=== PATIENT | female | born 1995 | race Caucasian/White ===

== ENCOUNTER → 2022-04-07 | Outpatient (CLI) | payer OTHER ==
--- NOTE | 2022-04-07 17:34 | US ---
EXAMINATION TYPE: Ultrasound OB <= 14 week fetus DATE OF EXAM: 04/07/2022 2:36 PM COMPARISON: NONE CLINICAL HISTORY: 26-year-old female Z36.89 Confirm dates. Early OB, A2. Date of LMP: 02/03/2022 . EXAM PERFORMED: OBTA FINDINGS: EXAM MEASUREMENTS: GESTATIONAL AGE / DATING Physician Established: Not yet established Dates by LMP: (9 weeks/0 days) EDC: 11/10/2022 Dates by First Scan: No previous this is first scan Dates by Current Scan for: (8 weeks/3 days) (+/- 5 days) EDC: 11/14/2022 MATERNAL ANATOMY Uterus: 11.2 x 3.9 x 5.1cm Right Ovary: 2.4 x 1.6 x 1.8cm Left Ovary: 2.8 x 3.3 x 2.5cm Post CDS / Adnexa: wnl Presence of free fluid: no Presence of corpus luteal cyst: left ovary = 2.4cm Presence of subchorionic bleed: no GESTATION / SURVEY CRL: 1.9cm ( 8 weeks/3 days) MSD: wnl Yolk Sac (normal less than 6mm): 0.3cm Heart Rate: 152 bpm Rhythm: Normal IUP: Viable IUP IMPRESSION: 1. Single live intrauterine with estimated gestational age of 9 weeks 0 days by LMP. Curren t ultrasound biometry is smaller but concordant at 8 weeks 3 days. 2. Complete survey recommended at 18-20 weeks.
== END | disposition home or self-care (01) ==
LOC: RADUSWWP 14:18
PROVIDERS: ATTEND Obstetrics & Gynecology
DX: Z36.89 Encounter for other specified antenatal screening (principal)
CPT/HCPCS: 76801

== ENCOUNTER → 2022-06-17 | Outpatient (CLI) | payer OTHER ==
--- NOTE | 2022-06-17 16:39 | US ---
EXAMINATION TYPE: US OB anatomy transabd DATE OF EXAM: 06/17/2022 COMPARISON: NONE GESTATIONAL AGE / DATING Physician Established: (19 weeks/1 days) EDC: 11/10/2022 Dates by LMP: approximately 02/07/2022 Dates by First Scan: No previous this is first Dates by Current Scan: (18 weeks/0 days) EDC: 11/18/2022 SURVEY IUP: Single PLACENTA: Posterior PREVIA: No Previa SUSAN: 10.0 cm CERVICAL LENGTH (transabdominal: norm > 3.0cm): 3.8 cm BIOMETRY PRESENTATION: Variable LIE: Transverse with head maternal L BPD: 3.76 cm 17 weeks / 3 days HC: 14.42 cm 17 weeks / 5 days AC: 14.35 cm 19 weeks / 5 days FL: 2.57 cm 17 weeks / 6 days ESTIMATED WEIGHT IN GRAMS: 250.2 grams ESTIMATED WEIGHT IN LBS/OZ: 0 lbs. 9 oz. WEIGHT PERCENTAGE BASED ON ESTABLISHED DATES: 19.8% HC/AC: 1.0 FL/AC: 17.9 HEART RATE: 143 bpm RHYTHM: Normal ANATOMY SEEN (within normal limits): * Lateral Vent (< 1 cm) 0.73 cm * Cisterna Magna (< 1.1 cm) 0.27 cm * Nuchal Fold (< 0.6 cm) 0.30 cm * Cerebellum (varies with age) 1.73 cm Choroid Plexus (bilateral) Midline Falx Cavus Septi Pellucidi Four Chamber Heart Outflow tracts: LVOT/RVOT Stomach Situs Nose / Lips Diaphragm Kidneys (bilateral) Bladder Cord Insert Three Vessel Cord Longitudinal Spine Transverse Spine Arms (bilateral) Legs (bilateral) IMPRESSION: 1. Single intrauterine gestation estimated at 18 weeks 0 days gestation based on current ultrasound m easurements. 2. Cardiac activity measures 143 bpm.
== END | disposition home or self-care (01) ==
LOC: RADUSWWP 10:28
PROVIDERS: ATTEND Obstetrics & Gynecology
DX: O36.62X0 Maternal care for excessive fetal growth, second trimester, not applicable or unspecified (principal); Z3A.18 18 weeks gestation of pregnancy
CPT/HCPCS: 76811

== ENCOUNTER → 2022-08-11 | Outpatient (CLI) | payer OTHER ==
[2022-08-11 17:46] LABS: HCT 33.6 % (37.2-46.3); HGB 10.4 g/dL (12.0-15.0); MCH 29.8 pg (27.0-32.0); MCV 96.3 fL (80.0-97.0); Mean Platelet Volume 11.2 fL (9.5-12.2); NRBC Per 100 WBC 0 /100 WBCS (0.0-0.0); Platelet Count 226 X 10*3/uL (140-440); RBC 3.49 X 10*6/uL (4.10-5.20); RDW 13.7 % (11.5-14.5); WBC 7.81 X 10*3/uL (4.50-10.00)
== END | disposition home or self-care (01) ==
LOC: LABWHC1 07:50
PROVIDERS: ATTEND Obstetrics & Gynecology
DX: N39.0 Urinary tract infection, site not specified (principal); D64.9 Anemia, unspecified; E03.9 Hypothyroidism, unspecified
CPT/HCPCS: 36415; 82950; 85027

== ENCOUNTER → 2022-10-07 | Outpatient (CLI) | payer OTHER ==
--- NOTE | 2022-10-07 12:04 | US ---
EXAMINATION TYPE: US OB >= 14 wk fetus DATE OF EXAM: 10/07/2022 COMPARISON: Prior ultrasounds April 07, 2022 and June 17, 2022 CLINICAL HISTORY: 36.63X0 MATERNAL CARE FOR EXCESS GROWTH, TH TECHNIQUE: GESTATIONAL AGE / DATING Physician Established: (35 weeks/3 days) EDC: 11-09-22 Dates by First Scan: (34 weeks/0 days) EDC: 11-18-22 Dates by Current Scan: (35 weeks/0 days) EDC: 11-11-22 SURVEY IUP: Single PLACENTA: Posterior/fundal PREVIA: No Previa SUSAN: 14.6 cm CERVICAL LENGTH (transabdominal: norm > 3.0cm): 3.4 cm BIOMETRY PRESENTATION: Vertex BPD: 8.7 cm 35 weeks / 0 days HC: 31.8 cm 35 weeks / 5 days AC: 31.1 cm 35 weeks / 0 days FL: 6.9 cm 35 weeks / 3 days ESTIMATED WEIGHT IN GRAMS: 2615 grams ESTIMATED WEIGHT IN LBS/OZ: 5 lbs. 12 oz. WEIGHT PERCENTAGE BASED ON ESTABLISHED DATES: 45% HC/AC: 1.0 FL/AC: 22.2 HEART RATE: 136 bpm Single live intrauterine gestation is redemonstrated. No cervical thinning is seen. No placenta previ a. Estimated amniotic fluid index remains within normal limits. biometry measurements are conco rdant and within normal limits. Satisfactory interval growth noted. IMPRESSION: As above.
== END | disposition home or self-care (01) ==
LOC: RADUSWWP 10:22
PROVIDERS: ATTEND Obstetrics & Gynecology
DX: O36.63X0 Maternal care for excessive fetal growth, third trimester, not applicable or unspecified (principal); Z3A.35 35 weeks gestation of pregnancy
CPT/HCPCS: 76805

== ENCOUNTER → 2022-11-16 | Outpatient (CLI) | payer OTHER | LOC: FBPOP 16:25 → UNDOADMIN 17:11 → 4FBP 17:11 | PROVIDERS: ATTEND Obstetrics & Gynecology | DX: Z53.9 Procedure and treatment not carried out, unspecified reason (principal) ==

== ENCOUNTER 2022-11-17 05:39 | Inpatient (IN) | payer OTHER ==
--- NOTE | 2022-11-16 19:12 | P.HPOB ---
History of Present Illness H&P Date: 11/16/22 Chief Complaint: Postdates induction This patient is a pleasant 27-year-old 4 para 1 female estimated date of confinement 11/10/2022 estimated gestational age 41 weeks who presents to labor and delivery for requested postdates induction of labor. Patient's has been uncomplicated. She initially was scheduled for Cervidil on the however was having contractions throughout the day and found to be 1-2 cm dilated. Patient was given the choice to stay her go home she elected to go home and return on the for induction. Patient has had normal ultrasounds and testing. Review of Systems Genitourinary: Reports Menstruation: Reports amenorrhea Past Medical History Past Medical History: No Reported History Additional Past Medical History / Comment(s): Patient had a previous 41 week vaginal delivery 8 lbs. 9 oz. baby uncomplicated. History of Any Multi-Drug Resistant Organisms: None Reported Past Surgical History: No Surgical Hx Reported Past Anesthesia/Blood Transfusion Reactions: No Reported Reaction Past Psychological History: No Psychological Hx Reported Smoking Status: Never smoker Past Alcohol Use History: None Reported Past Drug Use History: None Reported Medications and Allergies Home Medications Medication Instructions Recorded Confirmed Type Vit No.179/Iron/Folic 1 tab PO DAILY 11/16/22 11/16/22 History [ Tablet] Allergies Allergy/AdvReac Type Severity Reaction Status Date / Time No Known Allergies Allergy Verified 11/16/22 17:13 Exam - OBG Physical Exam Abdomen: bowel sounds normal, no diffuse tenderness, no bruit present, no guarding noted, no hepatomegaly, no splenomegaly, no mass Vulva: both: normal Vagina: normal moisture, no discharge Cervix: no lesion (Cervix is 1-2 cm thick but soft.), no discharge Uterus: enlarged (Fundal height is 40 cm) Results blood work shows she is A positive, rubella immune, RPR is nonreactive, HIV is nonreactive, hepatitis B was negative, group B strep was negative, Glucola was normal, most recent ultrasound showed a beta be 5 lbs. 12 oz. which is 45th percentile, this was on October 07 Assessment and Plan Assessment: This is a pleasant 27-year-old 4 para 1 female 41-0/7 weeks gestation who presents to labor and delivery for requested induction of labor. Plan is artificial rupture membranes and Pitocin augmentation per protocol. We anticipate vaginal delivery. (1) 41 weeks gestation of Status: Acute Code(s): O48.0 - POST-TERM ; Z3A.41 - 41 WEEKS GESTATION OF SNOMED Code(s): 22947760 (2) Elective induction of labor planned Status: Acute Code(s): [id number] - SNOMED Code(s): 452483470
[2022-11-17] MEDS ORDERED: OXYTOCIN 10 UNIT/ML 1 ML VIAL IM PRN (05:44)
[2022-11-17] MEDS ORDERED: METHYLERGONOVINE 0.2 MG/ML 1 ML AMP IM PRN (05:44)
[2022-11-17] MEDS ORDERED: TERBUTALINE 1 MG/ML VIAL SQ PRN (05:44)
[2022-11-17] MEDS ORDERED: OXYTOCIN 30 UNITS/500 ML NS 30 UNIT in SALINE 1 500ML.BAG IV SCH (05:44)
[2022-11-17] MEDS ORDERED: LIDOCAINE 0.5% (PF) 5 MG/ML (50 ML SDV) SQ PRN (05:44)
[2022-11-17] MEDS: LACTATED RINGERS 1,000 ML IV SCH ×4 (06:03→19:37)
[2022-11-17 06:18] LABS: Basophils % (A) 0 %; Eosinophils # (A) 0.1 k/uL (0-0.7); Eosinophils % (A) 1 %; HCT 35.7 % (34.0-46.0); HGB 12.2 gm/dL (11.4-16.0); Lymphocytes # (A) 2.6 k/uL (1.0-4.8); Lymphocytes % (A) 28 %; MCH 30.1 pg (25.0-35.0); MCHC 34.1 g/dL (31.0-37.0); MCV 88.5 fL (80.0-100.0); Mean Platelet Volume 9.6; Monocytes # (A) 0.3 k/uL (0-1.0); Monocytes % (A) 3 %; Neutrophils % (A) 65 %; Platelet Count 223 k/uL (150-450); RBC 4.04 m/uL (3.80-5.40); WBC 9.3 k/uL (3.8-10.6)
[2022-11-17] MEDS ORDERED: SODIUM CHLORIDE 0.9% 100 ML BAG ONE (19:00)
[2022-11-17] MEDS ORDERED: fentaNYL (PF) 50 MCG/ML 5 ML AMP ONE (19:00)
[2022-11-17] MEDS ORDERED: ROPIVACAINE 5 MG/ML 20 ML AMPULE ONE (19:00)
[2022-11-17] MEDS ORDERED: bisacodyL 10 MG SUPP RECTAL PRN (20:50)
[2022-11-17] MEDS ORDERED: ZOLPIDEM 5 MG TAB PO PRN (20:50)
[2022-11-17] MEDS ORDERED: SIMETHICONE 80 MG CHEWABLE PO PRN (20:50)
[2022-11-17] MEDS ORDERED: diphenhydrAMINE 25 MG CAP PO PRN (20:50)
[2022-11-17] MEDS ORDERED: BENZOCAINE/MENTHOL SPRAY 1 GM/SPRAY AEROSOL TOPICAL PRN (20:50)
[2022-11-17] MEDS ORDERED: HYDROCORTISONE 2.5% RECTAL CREAM 30 GM TUBE RECTAL PRN (20:50)
[2022-11-17] MEDS ORDERED: LANOLIN CREAM 5 GM TUBE TOPICAL PRN (20:50)
[2022-11-17] MEDS ORDERED: ACETAMINOPHEN TAB 325 MG TAB PO PRN (20:50)
[2022-11-17] MEDS ORDERED: diphenhydrAMINE 50 MG/ML 1 ML VIAL IVP PRN (20:50)
--- NOTE | 2022-11-17 20:55 | P.PROBDLV ---
Vaginal Delivery Note - . Vaginal Delivery Note: Normal vaginal delivery viable female Apgars 8 and 9 delivery time is 8 hrs. Please see dictated H&P for intimate details of this patient's admission. In brief summary this is a pleasant 27-year-old 4 para 1 female 41-0/7 weeks gestation who is admitted this morning for postdates induction of labor. On admission patient is 2 cm dilated has artificial rupture membranes for clear fluid. Patient's labor is induced with Pitocin per protocol. Patient is not initially requesting anything for pain control. Patient progresses slowly throughout the day and at approximately 1930 hrs. she is only 4 cm dilated and very uncomfortable does request an epidural for pain control. Patient gets relief from this and then approximately an hour later is complete. Patient pushes approximately 2 times pushes the head to the perineum. Posterior perineum is supported we have controlled delivery of the 's head over the intact perineum. Mouth and nares are bulb suctioned. 's head is straight occiput anterior presentation. There is a tight nuchal cord which is doubly clamped cut and then reduced. The anterior shoulder then spontaneously delivers followed by the rest of this infant's body. This is a vigorous viable female Apgars are 8 and 9 delivery time is 2038 hrs. Infant has spontaneous respirations and good cry and grossly appears normal. is laid on the mother's abdomen. The placenta is then spontaneously delivered intact. Estimated blood loss is 100 mL. There are no lacerations and no repairs required. Infant and mother stable delivery room.
[2022-11-17] MEDS: OXYTOCIN 30 UNITS/500 ML NS 30 UNIT in SALINE 1 500ML.BAG IV SCH ×2 (21:05→21:18)
[2022-11-17 21:44] VITALS: RESP 16
--- NOTE | 2022-11-18 07:01 | P.PNOBGVD ---
Subjective - Subjective Patient reports: Reports appetite normal, Reports voiding normally, Reports pain well controlled, Reports ambulating normally : doing well Objective - Latest Vital Signs Latest vital signs: Vital Signs Temp Pulse Resp BP Pulse Ox 11/18/22 04:00 98.6 F 84 16 96/59 11/18/22 00:00 76 16 130/62 11/17/22 23:25 70 16 132/63 11/17/22 22:59 81 16 116/58 11/17/22 22:29 98.5 F 75 16 124/64 11/17/22 22:00 66 16 108/56 11/17/22 21:44 71 16 105/55 99 11/17/22 21:29 79 16 131/58 99 11/17/22 21:14 67 16 103/55 98 11/17/22 21:00 98.7 F 76 16 111/59 98 Intake and Output 11/17/22 11/18/22 11/18/22 22:59 06:59 14:59 Intake Total 500 Output Total 300 250 Balance 200 -250 Intake: Intake, IV Titration 500 Amount Oxytocin 30 Units/500 ml 500 Ns 30 unit In Saline 1 500ml.bag @ Per Protocol IV .Q0M [facility] Rx#:[id number] Output: Urine 200 Estimated Blood Loss 100 Output, Quantitative 250 Blood Loss Other: # Voids 1 - Exam Lungs: bilateral: normal Chest: Normal S1, Normal S2 Extremities: Present: normal Abdomen: Present: normal appearance, soft Uterus: Present: normal, firm Assessment and Plan Assessment: Post day #1. Patient is resting without complaints wishes to go home later today. Vital signs are stable she is afebrile. Uterus is firm nontender she's having normal lochia. CBC is pending at time of this dictation. My impression is this is a normal course. Plan is to continue routine care, check a CBC, discharge home later tonight. (1) 41 weeks gestation of Current Visit: No Status: Acute Code(s): O48.0 - POST-TERM ; Z3A.41 - 41 WEEKS GESTATION OF SNOMED Code(s): 78955525 (2) Elective induction of labor planned Current Visit: No Status: Acute Code(s): [id number] - SNOMED Code(s): 740520168
--- NOTE | 2022-11-18 07:05 | P.DS ---
Providers Date of admission: 11/17/22 05:39 Expected date of discharge: 11/18/22 Attending physician: German Farias Primary care physician: Stated None - Discharge Diagnosis(es) (1) 41 weeks gestation of Current Visit: No Status: Acute (2) Elective induction of labor planned Current Visit: No Status: Acute Hospital Course: Please see dictated H&P for intimate details of this patient's admission. Brief summary this pleasant 27-year-old 4 para 1 female 41 weeks gestation admitted for postdates induction of labor. Patient is admitted and undergoes uncomplicated vaginal delivery viable female infant. Please see dictated delivery note. day #1 patient is without complaints and wishes to go home. Patient's felt to be stable for discharge home follow up with me in 6 weeks. Procedures: Induction of labor and normal vaginal delivery Patient Condition at Discharge: Good Plan - Discharge Summary New Discharge Prescriptions: New Ibuprofen [Motrin] 600 mg PO Q6HR PRN #30 tab PRN Reason: Mild Pain (Scale 1 To 3) No Action Vit No.179/Iron/Folic [ Tablet] 1 tab PO DAILY Discharge Medication List Vit No.179/Iron/Folic [ Tablet] 1 tab PO DAILY 11/16/22 [History] Ibuprofen [Motrin] 600 mg PO Q6HR PRN #30 tab 11/18/22 [Rx] Follow up Appointment(s)/Referral(s): German Farias MD [STAFF PHYSICIAN] - 12/29/22 2:15 pm Patient Instructions/Handouts: Vaginal Delivery (DC) Activity/Diet/Wound Care/Special Instructions: No intercourse or anything per vagina for 6 weeks. Please call if any fever, chills, excessive vaginal bleeding, and/or abdominal pain. Discharge Disposition: HOME SELF-CARE
[2022-11-18 07:17] LABS: Basophils % (A) 0 %; Eosinophils % (A) 0 %; HCT 34.4 % (34.0-46.0); HGB 11.8 gm/dL (11.4-16.0); Lymphocytes # (A) 1.5 k/uL (1.0-4.8); Lymphocytes % (A) 14 %; MCH 30.2 pg (25.0-35.0); MCHC 34.3 g/dL (31.0-37.0); MCV 88.1 fL (80.0-100.0); Monocytes # (A) 0.6 k/uL (0-1.0); Monocytes % (A) 6 %; Neutrophils # (A) 8.3 k/uL (1.3-7.7); Neutrophils % (A) 78 %; Platelet Count 180 k/uL (150-450); WBC 10.7 k/uL (3.8-10.6)
[2022-11-18] MEDS: SENNOSIDES-DOCUSATE SODIUM 1 EACH TAB PO SCH ×2 (07:45→21:31)
[2022-11-18] MEDS: IBUPROFEN 600 MG TAB PO PRN ×3 (07:45→22:00)
[2022-11-18 20:54] VITALS: BP 110/66; PULSE 79; TEMP 98
== END 2022-11-18 22:00 | disposition home or self-care (01) | DRG 807 ==
LOC: 4FBP 05:39
PROVIDERS: ADMIT Obstetrics & Gynecology; ATTEND Obstetrics & Gynecology
PROC: 10E0XZZ Delivery of Products of Conception, External Approach (ICD-10-PCS; principal; 2022-11-17)
PROC: 10907ZC Drainage of Amniotic Fluid, Therapeutic from Products of Conception, Via Natural or Artificial Opening (ICD-10-PCS; 2022-11-17)
PROC: 3E033VJ Introduction of Other Hormone into Peripheral Vein, Percutaneous Approach (ICD-10-PCS; 2022-11-17)
PROC: 4A0HXCZ Measurement of Products of Conception, Cardiac Rate, External Approach (ICD-10-PCS; 2022-11-17)
DX: O69.1XX0 Labor and delivery complicated by cord around neck, with compression, not applicable or unspecified (principal); Z37.0 Single live birth; O48.0 Post-term pregnancy; Z3A.41 41 weeks gestation of pregnancy
CPT/HCPCS: 85025; 86850; 86900; 86901

== ENCOUNTER 2022-11-19 15:55 | Outpatient (CLI) | payer OTHER ==
[2022-11-19 16:57] LABS: Appearance,Urine Clear (Clear); Bilirubin,Urine Negative (Negative); Blood,Urine Trace (Negative); Color,Urine Light Yellow; Glucose,Urine (UA) Negative (Negative); Ketones,Urine Negative (Negative); Leukocyte Esterase,Urine Negative (Negative); Mucus,Urine Rare /hpf; Nitrite,Urine Negative (Negative); PH, Urine 7.5 (5.0-8.0); Protein,Urine Negative (Negative); RBC,Urine 11 /hpf (0-5); Specific Gravity,Urine 1.012 (1.001-1.035); Urobilinogen,Urine <2.0 mg/dL (<2.0); WBC,Urine 1 /hpf (0-5)
== END 2022-11-19 17:36 | disposition home or self-care (01) ==
LOC: FBPOP 15:55
PROVIDERS: ATTEND Obstetrics & Gynecology
DX: R52 Pain, unspecified (principal)
CPT/HCPCS: 81001; 99213

== ENCOUNTER → 2024-06-04 | Outpatient (CLI) | payer OTHER ==
--- NOTE | 2024-06-06 12:51 | MR ---
EXAMINATION TYPE: MR shoulder LT wo con DATE OF EXAM: 06/04/2024 COMPARISON: None HISTORY: Bilateral shoulder pain, right shoulder hurts more. TECHNIQUE: Multiplanar, multisequence imaging of the right shoulder is performed without contrast. FINDINGS: There is no bone contusion or fracture. There is no degeneration of the AC joint and glenohumeral nando nt and there are no joint effusions. There is no subacromial or subdeltoid bursitis. The tendons of the rotator cuff are intact rotator cuff tear. The biceps tendon is normal in signal intensity and position within the bicipital groove and the alexys ps anchor is intact. There is no labral injury. IMPRESSION: No significant abnormality seen [facility], Workstation: ANA LAURA, 06/06/2024 12:49 PM
--- NOTE | 2024-06-06 12:54 | MR ---
EXAMINATION TYPE: MR shoulder RT wo con DATE OF EXAM: 06/04/2024 COMPARISON: None HISTORY: Bilateral shoulder pain, right shoulder hurts more. TECHNIQUE: Multiplanar, multisequence imaging of the right shoulder is performed without contrast. FINDINGS: There is no bone contusion, fracture or joint effusion. There is no significant degeneration of the A C joint and glenohumeral joint. There is mild subdeltoid bursitis. Rotator cuff tendons are intact. There is no labral injury. The biceps tendon is normal in signal intensity and position within the bicipital groove and the alexys ps anchor is intact. IMPRESSION: Mild subdeltoid bursitis. No other significant abnormality seen. [facility], Workstation: ANA LAURA, 06/06/2024 12:52 PM
== END | disposition home or self-care (01) ==
LOC: RADMRIMAIN 21:30
PROVIDERS: ATTEND Family Medicine
DX: M75.51 Bursitis of right shoulder (principal); M75.52 Bursitis of left shoulder; M25.511 Pain in right shoulder; X50.3XXA Overexertion from repetitive movements, initial encounter; R20.0 Anesthesia of skin

== ENCOUNTER 2025-03-27 21:19 | Emergency (ER) | payer OTHER ==
[2025-03-27 21:33] VITALS: TEMP 97.8
--- NOTE | 2025-03-27 23:06 | CT ---
EXAM: CT Head Without Intravenous Contrast CLINICAL HISTORY: ITS.REASON CT Reason: injury TECHNIQUE: Axial computed tomography images of the head/brain without intravenous contrast. CTDI is 45.2 mGy and DLP is 1061 mGy-cm. This CT exam was performed using one or more of the following dose reduction techniques: automated exposure control, adjustment of the mA and/or kV according to patient size, and/or use of iterative reconstruction technique. COMPARISON: No relevant prior studies available. FINDINGS: Brain: Unremarkable. No hemorrhage. No significant white matter disease. No edema. Ventricles: Unremarkable. No ventriculomegaly. Bones/joints: Unremarkable. No acute fracture. Soft tissues: Unremarkable. Sinuses: Unremarkable as visualized. No acute sinusitis. Mastoid air cells: Unremarkable as visualized. No mastoid effusion. IMPRESSION: No evidence of acute intracranial pathology. EXAM: CT Cervical Spine Without Intravenous Contrast CLINICAL HISTORY: ITS.REASON CT Reason: injury TECHNIQUE: Axial computed tomography images of the cervical spine without intravenous contrast. CTDI is 11.7 mGy and DLP is 317.8 mGy-cm. This CT exam was performed using one or more of the following dose reduction techniques: automated exposure control, adjustment of the mA and/or kV according to patient size, and/or use of iterative reconstruction technique. COMPARISON: No relevant prior studies available. FINDINGS: Vertebrae: Unremarkable. No acute fracture. Discs/spinal canal/neural foramina: No acute findings. No spinal canal stenosis. Soft tissues: Prominent cervical lymph nodes and lingual tonsils. IMPRESSION: No evidence of acute cervical spine pathology.
--- NOTE | 2025-03-27 23:15 | ED ---
Fall HPI - General Chief Complaint: Fall Stated Complaint: Had a fall, severe headache Time Seen by Provider: 03/27/25 21:52 Source: patient Mode of arrival: ambulatory - History of Present Illness Initial Comments: 29-year-old female presenting with chief complaint of headache. Patient reports that yesterday she had a trip and fall. She fell onto her right side, primarily onto her right knee. She was seen at urgent care and had x-rays performed of her lower extremity and elbow. Today she is complaining of a headache. Initially started on the right side of her head but then later felt like a band wrapped around both sides of the head. She was also having some pain and tightness in the right side of the neck that radiates into the shoulder. No numbness tingling or weakness. No nausea, vomiting, dizziness, vision or hearing changes. No blood thinner use. Unsure if she even hit her head when she fell. No loss of consciousness. - Related Data Home Medications Medication Instructions Recorded Confirmed Vit No.179/Iron/Folic 1 tab PO DAILY 11/16/22 11/16/22 [ Tablet] Previous Rx's Medication Instructions Recorded Ibuprofen [Motrin] 600 mg PO Q6HR PRN #30 tab 11/18/22 Allergies Allergy/AdvReac Type Severity Reaction Status Date / Time No Known Allergies Allergy Verified 03/27/25 21:33 Review of Systems ROS Statement: Those systems with pertinent positive or pertinent negative responses have been documented in the HPI. ROS Other: All systems not noted in ROS Statement are negative. Past Medical History Past Medical History: No Reported History Additional Past Medical History / Comment(s): Patient had a previous 41 week vaginal delivery 8 lbs. 9 oz. baby uncomplicated. History of Any Multi-Drug Resistant Organisms: None Reported Past Surgical History: No Surgical Hx Reported Additional Past Surgical History / Comment(s): D/C in 2019. [place] teeth. Past Anesthesia/Blood Transfusion Reactions: No Reported Reaction Past Psychological History: No Psychological Hx Reported Smoking Status: Never smoker Past Alcohol Use History: None Reported Past Drug Use History: None Reported - Past Family History Father Family Medical History: No Reported History General Exam Limitations: no limitations General appearance: alert, in no apparent distress Head exam: Present: atraumatic, normocephalic, normal inspection Eye exam: Present: normal appearance, PERRL, EOMI. Absent: periorbital swelling Pupils: Present: normal accommodation Neck exam: Present: normal inspection, full ROM. Absent: tenderness (She does have some paraspinal muscle tenderness down into the trapezius on the right side), meningismus Respiratory exam: Absent: respiratory distress Cardiovascular Exam: Present: regular rate Extremities exam: Present: normal inspection, full ROM Neurological exam: Present: alert, oriented X3 Expanded Patient oriented to: Present: person, place, time Speech: Present: fluid speech Cranial nerves: EOM's Intact: Normal Sensory exam: Upper Extremity Light Touch: Normal, Lower Extremity Light Touch: Normal Motor strength exam: RUE: 5, LUE: 5, RLE: 5, LLE: 5 Eye Response: (4) open spontaneously Motor Response: (6) obeys commands Verbal Response: (5) oriented [place] Total: 15 Psychiatric exam: Present: normal affect, normal mood Skin exam: Present: warm, dry, normal color Course Vital Signs 03/27/25 03/27/25 21:29 23:34 Temperature 97.8 F Pulse Rate 73 59 L Respiratory 17 18 Rate Blood Pressure 118/76 114/83 O2 Sat by Pulse 100 100 Oximetry Medical Decision Making - Medical Decision Making Was pt. sent in by a medical professional or institution ([facility], [facility], urgent care, hospital, or half-way...) When possible be specific @ -No Did you speak to anyone other than the patient for history (EMS, parent, family, police, friend...)? What history was obtained from this source @ -No Did you review nursing and triage notes (agree or disagree)? Why? @ -I reviewed and agree with nursing and triage notes Were old charts reviewed (outside hosp., previous admission, EMS record, old EKG, old radiological studies, urgent care reports/EKG's, half-way records)? Report findings @ -No old charts were reviewed Differential Diagnosis (chest pain, altered mental status, abdominal pain women, abdominal pain men, vaginal bleeding, weakness, fever, dyspnea, syncope, headache, dizziness, GI bleed, back pain, seizure, CVA, palpatations, mental health, musculoskeletal)? @ -Differential includes uncomplicated head injury, concussion, fracture, hemorrhage, not an all-inclusive list EKG interpreted by me (3pts min.). @ -As above X-rays interpreted by me (1pt min.). @ -None done CT interpreted by me (1pt min.). @ -CT shows no evidence of acute intracranial pathology. No evidence of acute cervical spine pathology U/S interpreted by me (1pt. min.). @ -None done What testing was considered but not performed or refused? (CT, X-rays, U/S, labs)? Why? @ -None What meds were considered but not given or refused? Why? @ -None Did you discuss the management of the patient with other professionals (professionals i.e. , PA, [facility], lab, RT, psych nurse, high school social studies tutor, cigarette catcher, teacher, immigration services officer, social work case manager)? Give summary @ -No Was smoking cessation discussed for >3mins.? @ -No Was critical care preformed (if so, how long)? @ -No Were there social determinants of health that impacted care today? How? (Homelessness, low income, unemployed, alcoholism, drug addiction, transportation, low edu. Level, literacy, decrease access to med. care, fdc, rehab)? @ -No Was there de-escalation of care discussed even if they declined (Discuss DNR or withdrawal of care, Hospice)? DNR status @ -No What co-morbidities impacted this encounter? (DM, HTN, Smoking, COPD, CAD, Cancer, CVA, ARF, Chemo, Hep., AIDS, mental health diagnosis, sleep apnea, morbid obesity)? @ -None Was patient admitted / discharged? Hospital course, mention meds given and route, prescriptions, significant lab abnormalities, going to OR and other pert inent info. @ -29-year-old female presenting with chief complaint of headache and right- sided neck pain. She had a trip and fall yesterday. Patient is description seems to match tension headache arising from tension in the shoulders. GCS 15 with no focal neurological deficits on exam. Negative [place] head CT rules. Educated the patient on these findings. I informed her that CT is not elijah mmended at this time. Shared decision making is utilized, patient is requesting CT be performed. CT shows no acute intracranial process or cervical spine fracture. Patient educated on findings and supportive management. Follow-up with PCP. Report back to ER with any new or worsening symptoms. Discussed return parameters and answered all questions. Patient conveyed verbal understanding and agreed to the plan. I discussed this case in detail with my attending Dr. Choi Undiagnosed new problem with uncertain prognosis? @ -No Drug Therapy requiring intensive monitoring for toxicity (Heparin, Nitro, Insulin, Cardizem)? @ -No Were any procedures done? @ -No Diagnosis/symptom? @ -Tension headache, fall Acute, or Chronic, or Acute on Chronic? @ -Acute Uncomplicated (without systemic symptoms) or Complicated (systemic symptoms)? @ -Uncomplicated Side effects of treatment? @ -No Exacerbation, Progression, or Severe Exacerbation? @ -No Poses a threat to life or bodily function? How? (Chest pain, [place], PR, pneumonia, PE, COPD, DKA, ARF, appy, cholecystitis, CVA, Diverticulitis, Homicidal, Suicidal, threat to staff... and all critical care pts) @ -Unlikely Disposition Clinical Impression: Fall, Tension headache Disposition: HOME SELF-CARE Condition: Good Instructions (If sedation given, give patient instructions): Tension Headache (ED) Additional Instructions: Follow-up with PCP. Report back to ER with any new or worsening symptoms. Motrin and Tylenol as needed for pain control. Is patient prescribed a controlled substance at d/c from ED?: No Referrals: None,Stated [Primary Care Provider] - 1-2 days Forms: Area PCPs Time of Disposition: 23:14
[2025-03-27 23:35] VITALS: BP 114/83; PULSE 59; RESP 18
== END 2025-03-27 23:35 | disposition home or self-care (01) ==
LOC: EC 21:19
DX: G44.209 Tension-type headache, unspecified, not intractable (principal); W01.0XXA Fall on same level from slipping, tripping and stumbling without subsequent striking against object, initial encounter
CPT/HCPCS: 70450; 72125; 99283